=== PATIENT | male | born 1970 | race Two or more races ===

== ENCOUNTER 2020-04-29 15:19 | Observation (INO) | payer OTHER ==
[2020-04-29] MEDS ORDERED: fentaNYL 50 MCG/ML SDV IVPUSH ONE (15:36)
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
--- NOTE | 2020-04-29 15:56 | CR ---
Chest: Portable supine view of the chest was obtained. Comparison: No prior chest imaging is available. Heart size and mediastinum are normal. Lungs are clear with no acute parenchymal change. Bony structures are grossly intact. Impression: 1. Nothing acute is seen on supine chest x-ray. Diagnostic code #1 This report was dictated in MDT
--- NOTE | 2020-04-29 16:21 | CT ---
Head CT Technique: Multiple axial sections through the brain were obtained. Intravenous contrast was not utilized. Findings: Ventricles along with basal cisterns and sulci over the convexities are within normal limits for the patient's age. No abnormal parenchymal densities are seen. No evidence of intracranial hemorrhage. There appears to be soft tissue swelling within the right scalp. No acute calvarial finding is seen. Visualized mastoid sinuses and paranasal sinuses show nothing acute. Impression: 1. Soft tissue swelling within the right side of scalp. 2. No acute intracranial abnormality is appreciated. Diagnostic code #2 This report was dictated in MDT
--- NOTE | 2020-04-29 16:24 | CT ---
CT cervical spine Technique: Multiple axial sections were obtained from above C1 inferiorly to the top of T2. Reconstructed coronal and sagittal images were obtained. Comparison: No prior cervical spine imaging is available. Findings: Vertebral body heights and disc spaces are maintained. Vertebral bodies and posterior arches are intact. No fracture is appreciated. No bony central or bony neural foraminal stenosis is seen. No abnormal subluxation is appreciated on the reconstructed sagittal images. Minimal degenerative change within the lower apophyseal joints is noted. Impression: 1. Nothing acute is appreciated on CT study of the cervical spine. Diagnostic code #2 This report was dictated in MDT
--- NOTE | 2020-04-29 16:26 | CT ---
CT abdomen and pelvis Technique: Multiple axial sections were obtained from above the dome of the diaphragm inferiorly through the pubic symphysis. Intravenous contrast was utilized. Mild artifact is noted from the patient's arms along the side. Reconstructed coronal and sagittal images were obtained. Findings: Visualized lung bases show nothing acute. Liver shows no discrete abnormality. Small hiatal hernia is noted. Spleen appears within normal limits. Adrenal glands show no nodule. Kidneys show symmetric contrast enhancement. Minimal cortical lesion believed to represent a small cyst is noted within the mid left kidney measuring 5 mm. No additional abnormality is appreciated within the kidneys. Pancreas appears within normal limits. Aorta shows no aneurysm. No calcified gallstones are seen. No retroperitoneal adenopathy or mesenteric abnormalities are seen. Appendix is seen which is normal in size. No pelvic mass or adenopathy is seen. No free fluid or inflammatory change is appreciated. Bone window settings were reviewed which appear within normal limits for the patient's age. Impression: 1. Small hiatal hernia. 2. No additional abnormality is appreciated on CT study of the abdomen and pelvis. Diagnostic code #2 This report was dictated in MDT
--- NOTE | 2020-04-29 16:28 | CT ---
CT chest Technique: Multiple axial sections through the chest were obtained. Intravenous contrast was utilized. Comparison: Prior chest x-ray performed earlier on the same day (3:35 PM). Findings: Mediastinum and hilar regions show no adenopathy or mass. Aorta shows no aneurysm. No pericardial thickening is seen. Lungs are clear with no acute parenchymal change. No discrete pulmonary nodule is appreciated. No pleural effusions are seen. Bone window settings were reviewed which show no acute osseous finding. Incidental Schmorl node deformities are noted within the thoracic spine. Impression: 1. Nothing acute is appreciated on CT study of the chest. Diagnostic code #2 This report was dictated in MDT
[2020-04-29 16:33] LABS: CARBON DIOXIDE,CO2 24.3 mmol/L (21.0-32.0); POTASSIUM,K 4.2 mmol/L (3.5-5.1)
--- NOTE | 2020-04-29 16:45 | CR ---
Left tibia and fibula: AP and lateral views left tibia and fibula were obtained. No acute fracture, dislocation or other bony abnormality is seen. Impression: 1. No abnormality is identified on left tibia and fibula study. Diagnostic code #1 This report was dictated in MDT
--- NOTE | 2020-04-29 16:45 | CR ---
Right knee: AP, lateral and sunrise patellar views of the right knee were obtained. Comparison: No previous knee study. Medial and lateral joint compartments are maintained in height. No joint effusion is seen. Patellofemoral joint appears normal. No acute fracture or other abnormality is appreciated. Impression: 1. No abnormality is identified on 3 view right knee exam. Diagnostic code #1 This report was dictated in MDT
[2020-04-29] MEDS ORDERED: Iopamidol 755 Mg/ML 100 ML Bottle IVPUSH STA (16:50)
--- NOTE | 2020-04-29 17:02 | CR ---
Addendum: Single sunrise patellar view of the left patella was obtained. Joint space is preserved. No fracture or other abnormality is seen. Impression: 1. Negative left sunrise patellar view. --- Addendum1 above dictated on [04/29/2020 18:35] by [Juliet Jules, Richard Mike] --- --- Addendum1 above signed on [04/29/2020 19:05] by [Juliet Jules Hilton J.] --- --- Original report below dictated on [04/29/2020 15:48] by [Juliet Jules, Richard Mike] --- --- Original report below signed on [04/29/2020 15:59] by [Juliet Jules, Richard Mike] --- Left knee: AP and lateral views of the left knee were in obtained which are included on left tibia and fibula study. Medial and lateral joint compartments are maintained in height. No joint effusion is seen. No acute fracture or other abnormality is appreciated. Impression: 1. No abnormality is appreciated and 2 view left knee exam. Diagnostic code #1 This report was dictated in MDT --- Addendum1 signed ---
[2020-04-29] MEDS ORDERED: Acetaminophen 500 MG Tab PO ONE (17:11)
[2020-04-29] MEDS ORDERED: Sodium Chloride 0.9% 1,000 ML IV SCH ×2 (17:15→18:00)
[2020-04-29] MEDS ORDERED: Lidocaine 1% with EPINEPHrine 1:100,000 20 ML MDV INJECT ONE (18:20)
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
[2020-04-29] MEDS ORDERED: HYDROmorphone 2 MG/ML Syringe IVPUSH PRN (19:22)
[2020-04-29] MEDS ORDERED: Sodium Chloride 0.9% 10 ML SDV IV PRN (19:22)
[2020-04-29] MEDS ORDERED: Sodium Chloride 0.9% 10 ML Syringe FLUSH PRN (19:22)
[2020-04-29] MEDS ORDERED: diphenhydrAMINE 50 MG/ML SDV IVPUSH PRN (19:22)
[2020-04-29] MEDS ORDERED: Acetaminophen/oxyCODONE 325-5 MG Tab PO PRN (19:22)
[2020-04-29] MEDS ORDERED: Sodium Chloride 0.9% 2.5 ML Syringe FLUSH PRN (19:22)
[2020-04-29] MEDS ORDERED: Ondansetron 4 MG/2 ML SDV IVPUSH PRN (19:22)
[2020-04-29] MEDS ORDERED: Ibuprofen 400 MG Tab PO PRN (19:25)
[2020-04-29] MEDS ORDERED: Metoprolol Tartrate 5 MG/5 ML SDV IVPUSH PRN (19:25)
--- NOTE | 2020-04-29 19:25 | PCM.PRNOTE ---
ED LACERATION PROCEDURES - Laceration/Wound Repair Middle Forehead Lac/wound length in cm: 5 Appearance: Subcutaneous, Linear, Clean Distal NVT: Neuro & Vascular Intact, No Tendon Injury Anesthetic Type: Local Local Anesthesia - Lidocaine (Xylocaine): 1% with EPI Local Anesthetic Volume: 5cc Skin Prep: Chlorhexidine (Hibiciens), Providone-Iodine (Betadine), Saline Saline irrigation (cc's): 150 Exploration/Debridement/Repair: Wound Explored, In a Bloodless Field, Explored to Base, No Foreign Material Found Closed with: Sutures Suture Size: 5-0 # of Sutures: 6 Suture Type: Other (plain gut) Drain Placement: No Sterile Dressing Applied: Nurse Tetanus Status Addressed: Yes Complications: No
--- NOTE | 2020-04-29 20:00 | CR ---
Right tibia and fibula: AP and lateral views of the right tibia and fibula were obtained. Comparison: No prior study. No fracture or other bony abnormality is appreciated. Impression: 1. No abnormality is appreciated on 2 view right tibia and fibula exam. Diagnostic code #1 Study was dictated in MDT
[2020-04-29] MEDS: Sodium Chloride 0.9% 1,000 ML IV SCH (20:32)
[2020-04-29] MEDS ORDERED: Omeprazole 20 MG Cap.CR PO ONE (22:39)
[2020-04-29] MEDS ORDERED: Calcium Carbonate 500 MG Tab.Chew PO PRN (22:39)
[2020-04-30 06:21] LABS: BLOOD UREA NITROGEN,BUN 11 mg/dL (7.0-18.0); CARBON DIOXIDE,CO2 27.2 mmol/L (21.0-32.0); CHLORIDE,CL 106 mmol/L (98-107); GLUCOSE RANDOM 129 mg/dL (74-106); POTASSIUM,K 4.2 mmol/L (3.5-5.1); SODIUM,NA 142 mmol/L (136-148)
[2020-04-30] MEDS: Sodium Chloride 0.9% 1,000 ML IV SCH (07:41)
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
[2020-04-30] MEDS ORDERED: Bacitracin Oint 1 GM U/D Packet TOP ONE (10:31)
== END 2020-04-30 12:35 | disposition home or self-care (01) ==
LOC: MW.ED 15:19 → MW.MS 18:23
PROVIDERS: ADMIT Surgery; ATTEND Surgery
DX: S06.0X1A Concussion with loss of consciousness of 30 minutes or less, initial encounter (principal); S01.81XA Laceration without foreign body of other part of head, initial encounter; S16.1XXA Strain of muscle, fascia and tendon at neck level, initial encounter; S80.02XA Contusion of left knee, initial encounter; I10 Essential (primary) hypertension; Z20.828 Contact with and (suspected) exposure to other viral communicable diseases; V68.5XXA Driver of heavy transport vehicle injured in noncollision transport accident in traffic accident, initial encounter; Y92.410 Unspecified street and highway as the place of occurrence of the external cause
CPT/HCPCS: 12013; 36415; 70450; 71045; 71260; 72125; 73562; 73590; 74177; 80048; 80053; 80307; 81001; 85025; 85027; 86706; 86803; 87340; 87389; 87635; 93005; 96361; 96374; 97161; 99285; A9270; G0390; J1170; J3010; J7030; Q9967; 99291; U0002

== ENCOUNTER 2020-07-13 06:45 | Day surgery (SDC) | payer BC ==
[~2020-07-13 06:45] MED LIST: Lactated Ringers 1,000 ML IV SCH; Sodium Chloride 0.9% 10 ML SDV IV PRN; Sodium Chloride 0.9% 10 ML Syringe FLUSH PRN; Sodium Chloride 0.9% 2.5 ML Syringe FLUSH PRN
[2020-07-13] MEDS ORDERED: Lidocaine 2% 5 ML SDV ONE (07:10)
[2020-07-13] MEDS ORDERED: fentaNYL 100 MCG/2 ML SDV ONE (07:11)
[2020-07-13] MEDS ORDERED: Propofol 200 MG/20 ML SDV ONE ×2 (07:11→08:41)
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
[2020-07-13] MEDS ORDERED: Midazolam 1 MG/ML 2 ML SDV ONE (08:31)
--- NOTE | 2020-07-13 09:01 | PCM.OPNOTE ---
- General Post-Op/Procedure Note Date of Surgery/Procedure: 07/13/20 Operative Procedure(s): Diagnostic colonoscopy and polypectomy Findings: transverse colon polyp, grade 3 hemorrhoids Pre Op Diagnosis: BRBPR, change in bowel habits Post-Op Diagnosis: Grade 3 hemorrhoids, transverse colon polyp Anesthesia Technique: MAC Primary Surgeon: Elli Silvestre Condition: Good
--- NOTE | 2020-07-13 09:18 | PCM.POSTAN ---
POST ANESTHESIA ASSESSMENT - MENTAL STATUS Mental Status: Alert, Oriented - VITAL SIGNS Vital Signs: Last Vital Signs Temp 36.2 C 07/13/20 08:52 Pulse 80 07/13/20 09:08 Resp 12 07/13/20 09:08 BP 100/63 07/13/20 09:08 Pulse Ox 99 07/13/20 09:08 - RESPIRATORY Respiratory Status: Respiratory Rate WNL, Airway Patent, O2 Saturation Stable - CARDIOVASCULAR CV Status: Pulse Rate WNL, Blood Pressure Stable - GASTROINTESTINAL GI Status: No Symptoms - PAIN Pain Score: 0 - POST OP HYDRATION Hydration Status: Adequate & Stable - OBSERVATIONS Free Text/Narrative:: No anesthesia problems
--- NOTE | 2020-07-13 09:33 | PCM48HPAN ---
Post Anesthesia Note - EVALUATION WITHIN 48HRS OF ANESTHETIC Vital Signs in Normal Range: Yes Patient Participated in Evaluation: Yes Respiratory Function Stable: Yes Airway Patent: Yes Cardiovascular Function Stable: Yes Hydration Status Stable: Yes Pain Control Satisfactory: Yes Nausea and Vomiting Control Satisfactory: Yes Mental Status Recovered: Yes Vital Signs: Last Vital Signs Temp 36.2 C 07/13/20 08:52 Pulse 80 07/13/20 09:08 Resp 12 07/13/20 09:08 BP 100/63 07/13/20 09:08 Pulse Ox 99 07/13/20 09:08 - COMMENTS/OBSERVATIONS Free Text/Narrative:: No ,anesthesia problems
--- NOTE | 2020-07-13 09:49 | OR ---
SURGEON: ELLI SILVESTRE MD DATE OF PROCEDURE: 07/13/2020 PREOPERATIVE DIAGNOSES: Bright red bleeding per rectum, change in bowel habits. POSTOPERATIVE DIAGNOSES: 1. Grade 3 hemorrhoids. 2. Transverse colon polyp. PROCEDURE PERFORMED: Diagnostic colonoscopy. PRIMARY SURGEON: Elli Silvestre MD ANESTHESIA: MAC. INSTRUMENT USED: Olympus colonoscope. EXTENT OF EXAM: To the cecum. PREPARATION: Good. LIMITATIONS: None. INDICATIONS FOR EXAMINATION: The patient is a 50-year-old male who presented to my office with an acute change in his bowel habits associated with some bright red bleeding per rectum. The patient and I discussed the procedure, expected perioperative course, and risks. The patient verbalized understanding and wishes to proceed. PROCEDURE IN DETAIL: The patient was brought into the endoscopy suite and placed in the left lateral decubitus position. A time-out was completed verifying the patient's name, age, date of , allergies, and procedure to be performed. Monitored anesthesia care was induced and continuous oxygen was provided via nasal cannula throughout the procedure. After adequate sedation was achieved, a digital rectal exam was performed. This exam revealed grade 3 hemorrhoids with no evidence of acute bleeding. A well-lubricated colonoscope was inserted in the rectum and advanced under direct visualization to the level of the cecum. The cecum was identified by both visual and anatomic landmarks. A photograph was taken of the cecal cap as well as the ileocecal valve. I did not retroflex the scope within the cecum due to looping of the scope more proximally. The scope was fully withdrawn while examining the color, texture, anatomy, and integrity of the mucosa from the cecum to the anal canal. The patient was found to have a small sessile polyp in the mid transverse colon. This was removed in piecemeal fashion using cold biopsy forceps. The remainder of the colon appeared normal. The scope was then brought into the rectum and retroflexed to allow visualization of the anal canal opening. This appeared normal other than the mildly enlarged hemorrhoids and a photograph was taken. The scope was straightened out and fully withdrawn. The cecum to anus time was 14 minutes. The patient tolerated the procedure well and was transferred to the PACU in stable condition. ENDOSCOPIC DIAGNOSES: 1. Grade 3 hemorrhoids. 2. Transverse colon polyp. RECOMMENDATIONS: Follow up in clinic in 2 weeks. SPENSER BURNS /[id number]
== END 2020-07-13 09:30 | disposition home or self-care (01) ==
LOC: MW.SDS 06:45
PROVIDERS: ATTEND Surgery
DX: D12.3 Benign neoplasm of transverse colon (principal); K64.2 Third degree hemorrhoids; F32.9 Major depressive disorder, single episode, unspecified; E11.9 Type 2 diabetes mellitus without complications; I10 Essential (primary) hypertension; K64.4 Residual hemorrhoidal skin tags; E78.00 Pure hypercholesterolemia, unspecified; E66.9 Obesity, unspecified; Z68.32 Body mass index [BMI] 32.0-32.9, adult; Z87.891 Personal history of nicotine dependence; Z79.899 Other long term (current) drug therapy; Z79.84 Long term (current) use of oral hypoglycemic drugs; Z98.890 Other specified postprocedural states
CPT/HCPCS: 45380; J2001; J2250; J2704; J3010; J7120; 00811; 88305